=== PATIENT | male | born 1945 | race Caucasian/White ===

== ENCOUNTER 2024-06-13 20:04 | Inpatient (IN) | payer MEDICARE ==
[~2024-06-13] VITALS: Ht 172.7 cm; Wt 72.1 kg
[2024-06-13] MEDS ORDERED: DIATR MEGLU/DIATRIZOATE SODIUM 30 ML BOTTLE (GASTROGRAPHIN) ONE (20:36)
[2024-06-13] MEDS: IV NS 0.9% 1,000 ML BAG IV ONE (21:00)
[2024-06-13] MEDS: PIPERACILLIN /TAZOBACTAM 3.375 G in IV D5W 50 ML IV ONE (21:00)
[2024-06-13] MEDS: ACETAMINOPHEN 650 MG/SUPP.RECT RC ONE (21:00)
[2024-06-13] MEDS: VANCOMYCIN 1 GM in IV D5W 250 ML IV ONE (21:00)
[2024-06-13 21:02] LABS: BASOPHILS % (AUTO) 0.4 % (0.0-2.0); HEMATOCRIT 35 % (39-51); HEMOGLOBIN 11.2 g/dL (13.5-17.5); LYMPHOCYTES # (AUTO) 0.3 K/uL (0.8-4.8); LYMPHOCYTES % (AUTO) 2.4 % (20.0-44.0); MEAN CORPUSCULAR HEMOGLOBIN 23 PG (26.0-33.0); MEAN CORPUSCULAR HGB CONC 32 g/dl (31.0-36.0); MEAN CORPUSCULAR VOLUME 71 fL (80-96); MONOCYTES # (AUTO) 0.7 K/uL (0.1-1.30); MONOCYTES % (AUTO) 6.4 % (2.0-12.0); NEUTROPHILS # (AUTO) 9.8 K/uL (1.8-8.9); NEUTROPHILS % (AUTO) 90.8 % (43.0-81.0); PLATELET COUNT (AUTO) 282 K/uL (150-450); RED BLOOD CELL COUNT(AUTO) 4.89 MIL/uL (4.5-6.0); WHITE BLOOD COUNT (AUTO) 10.8 K/uL (4.3-11.0)
[2024-06-13] MEDS ORDERED: VANCOMYCIN 1 GM /D5W 250 ML PB IV ONE (21:05)
[2024-06-13] MEDS ORDERED: PIPERACI/TAZO 3.375GM/D5W 50ML PB IV ONE (21:05)
[2024-06-13] MEDS ORDERED: ACETAMINOPHEN 650 MG/SUPP.RECT RC ONE (21:05)
[2024-06-13 21:24] LABS: ALANINE AMINOTRANSFERASE 12 U/L (12-78); ALBUMIN 2.8 g/dL (3.4-5.0); ALKALINE PHOSPHATASE 78 U/L (46-116); ASPARTATE AMINOTRANSFERASE 16 U/L (15-37); BILIRUBIN,DIRECT 0.2 mg/dL (0.0-0.2); BILIRUBIN,TOTAL 0.6 mg/dL (0.2-1.0); CALCIUM, SERUM 10.3 mg/dL (8.5-10.1); CARBON DIOXIDE 28 mmol/L (21-32); CHLORIDE 89 mmol/L (98-107); CREATININE 0.8 mg/dL (0.6-1.3); GLUCOSE 171 mg/dL (74-106); INR 1.17 (0.91-1.10); LIPASE 20 U/L (16-77); NT-PRO BNP 1211 pg/mL (0-125); PARTIAL THROMBOPLASTIN TIME 26.2 SEC (24.3-34.3); POTASSIUM 3.7 mmol/L (3.5-5.1); PROTHROMBIN TIME 12.3 SECS (9.2-11.1); SODIUM SERUM 126 mmol/L (136-145); TOTAL PROTEIN, SERUM 7.7 g/dL (6.4-8.2); UREA NITROGEN, BLOOD 18 mg/dL (7-18)
[2024-06-13 21:27] LABS: LACTIC ACID 3.7 mmol/L (0.4-2.0)
[2024-06-13 23:08] LABS: APPEARANCE,URINE CLEAR (CLEAR); BILIRUBIN,URINE NEGATIVE (NEGATIVE); BLOOD, URINE TRACE-INTA Ery/uL (NEGATIVE); COLOR,URINE YELLOW (YELLOW); KETONES,URINE 1+ mg/dL (NEGATIVE); LEUKOCYTE ESTERASE ,URINE NEGATIVE (NEGATIVE); NITRITE, URINE NEGATIVE (NEGATIVE); PH,URINE 7.5 (5.0-8.0); PROTEIN,URINE 1+ mg/dl (NEGATIVE); UGLUCOSE NEGATIVE (NEGATIVE); UROBILINOGEN,URINE 0.2 EU/dL (0.2)
[2024-06-13 23:18] LABS: ADD URINE CULTURE NO; BACTERIA,URINE None seen /HPF (None Seen); CALCIUM OXALATE CRYSTALS,UR Few /HPF (None Seen); SQUAMOUS EPITHELIAL CELL,UR Rare /HPF (None Seen); WBC,URINE 0-2 /HPF (0-3)
[2024-06-13] MEDS ORDERED: MAGNESIUM HYDROXIDE 30 ML UDC PO PRN (23:30)
[2024-06-13] MEDS ORDERED: MAG HYDROX/AL HYDROX/SIMETH 30 ML UDC PO PRN (23:30)
[2024-06-13] MEDS ORDERED: ONDANSETRON HCL/PF 4 MG/2 ML VIAL IVP PRN (23:30)
[2024-06-13] MEDS ORDERED: DEXTROSE 50%-WATER 50 ML DISP.SYRIN IV PRN (23:30)
[2024-06-13] MEDS ORDERED: ACETAMINOPHEN 325 MG TABLET PO PRN (23:30)
[2024-06-13] MEDS ORDERED: ZOSYN IVPB 3.375 G in IV D5W 50ml IV ONE (23:45)
[2024-06-14] VITALS (11 sets, daily range): BP systolic 128–156; BP diastolic 74–85; TEMP 97.2–98.8; O2SAT 94–99
[2024-06-14] MEDS ORDERED: CALC-770 GT (01:18)
[2024-06-14] MEDS ORDERED: FOLI0.4T6 GT (01:18)
[2024-06-14] MEDS ORDERED: CLOP75TA15 PO (01:18)
[2024-06-14] MEDS ORDERED: GABA300C GT (01:18)
[2024-06-14] MEDS ORDERED: FLUT1BLS14 INH (01:18)
[2024-06-14] MEDS ORDERED: BIFI4CAP GT (01:18)
[2024-06-14] MEDS ORDERED: PANT40TA49 GT (01:18)
[2024-06-14] MEDS ORDERED: GLIM1TAB18 GT (01:18)
[2024-06-14] MEDS ORDERED: HYDR12.55 PO (01:18)
[2024-06-14] MEDS ORDERED: AMOX1TAB16 PO (01:18)
[2024-06-14] MEDS ORDERED: SITA100T GT (01:18)
[2024-06-14] MEDS ORDERED: ASCO500C17 PO (01:18)
[2024-06-14] MEDS ORDERED: CYAN10006 IM (01:18)
[2024-06-14] MEDS ORDERED: DIVA125C5 GT (01:18)
[2024-06-14] MEDS ORDERED: TRAM50TA2 GT (01:18)
[2024-06-14] MEDS ORDERED: LOSA50TA39 GT (01:18)
[2024-06-14] MEDS ORDERED: METF-442 GT (01:18)
[2024-06-14] MEDS ORDERED: ACET-3117 PO (01:18)
[2024-06-14] MEDS ORDERED: ATOR40TA GT (01:18)
[2024-06-14] MEDS ORDERED: METO25TA6 GT (01:18)
[2024-06-14] MEDS: ENOXAPARIN SODIUM 40 MG/0.4 ML DISP.SYRIN SQ SCH (02:23)
[2024-06-14] MEDS ORDERED: PIPERACI/TAZO 3.375GM/D5W 50ML PB IV ONE ×2 (02:43→02:56)
[2024-06-14] MEDS: ZOSYN IVPB 3.375 G in IV D5W 50ml IV ONE (03:10)
[2024-06-14] MEDS: BLOOD SUGAR DIAGNOSTIC 1 EACH STRIP IN SCH ×2 (06:49→18:43)
[2024-06-14 07:47] LABS: BASOPHILS % (AUTO) 0.2 % (0.0-2.0); HEMATOCRIT 37 % (39-51); HEMOGLOBIN 11.5 g/dL (13.5-17.5); LYMPHOCYTES # (AUTO) 0.8 K/uL (0.8-4.8); LYMPHOCYTES % (AUTO) 5.5 % (20.0-44.0); MEAN CORPUSCULAR HEMOGLOBIN 22 PG (26.0-33.0); MEAN CORPUSCULAR HGB CONC 31 g/dl (31.0-36.0); MEAN CORPUSCULAR VOLUME 71 fL (80-96); MONOCYTES # (AUTO) 1.2 K/uL (0.1-1.30); MONOCYTES % (AUTO) 8.8 % (2.0-12.0); NEUTROPHILS # (AUTO) 11.9 K/uL (1.8-8.9); NEUTROPHILS % (AUTO) 85.5 % (43.0-81.0); PLATELET COUNT (AUTO) 285 K/uL (150-450); RED BLOOD CELL COUNT(AUTO) 5.15 MIL/uL (4.5-6.0); RED CELL DISTRIBUTION WIDTH 17.1 % (11.5-15.0); WHITE BLOOD COUNT (AUTO) 13.9 K/uL (4.3-11.0)
[2024-06-14] MEDS: INSULIN REGULAR, HUMAN 100 UNIT/ML 3 ML VIAL SQ PRN ×2 (08:24→18:43)
[2024-06-14 08:26] LABS: CALCIUM, SERUM 9.5 mg/dL (8.5-10.1); CREATININE 0.6 mg/dL (0.6-1.3); MAGNESIUM 1.6 mg/dL (1.8-2.4); PHOSPHORUS 3.6 mg/dL (2.5-4.9); POTASSIUM 3.5 mmol/L (3.5-5.1)
[2024-06-14] MEDS: PIPERACILLIN /TAZOBACTAM 3.375 G in IV D5W 50 ML IV SCH (09:58)
[2024-06-14] MEDS: PANTOPRAZOLE 40 MG VIAL IV SCH (09:59)
[2024-06-14] MEDS ORDERED: HYDR25TA4 GT (10:23)
[2024-06-14] MEDS ORDERED: CYAN-51 GT (10:23)
[2024-06-14] MEDS ORDERED: ASCO500T10 GT (10:23)
[2024-06-14] MEDS: VANCOMYCIN 750 MG in IV D5W 250 ML IV SCH (10:30)
[2024-06-14] MEDS: Magnesium 1GM/D5W 100ML PREMIX 100 ML IV SCH (11:32)
[2024-06-15] VITALS (11 sets, daily range): BP systolic 121–150; BP diastolic 59–93; TEMP 97.3–99.1; O2SAT 93–97
[2024-06-15 08:04] LABS: BASOPHILS % (AUTO) 0.2 % (0.0-2.0); EOSINOPHILS % (AUTO) 0.1 % (0.0-6.0); HEMATOCRIT 33 % (39-51); HEMOGLOBIN 10.4 g/dL (13.5-17.5); LYMPHOCYTES % (AUTO) 6.5 % (20.0-44.0); MEAN CORPUSCULAR HEMOGLOBIN 22 PG (26.0-33.0); MEAN CORPUSCULAR HGB CONC 32 g/dl (31.0-36.0); MEAN CORPUSCULAR VOLUME 70 fL (80-96); MONOCYTES % (AUTO) 8.1 % (2.0-12.0); NEUTROPHILS % (AUTO) 85.1 % (43.0-81.0); PLATELET COUNT (AUTO) 250 K/uL (150-450); RED BLOOD CELL COUNT(AUTO) 4.65 MIL/uL (4.5-6.0); RED CELL DISTRIBUTION WIDTH 17.1 % (11.5-15.0); WHITE BLOOD COUNT (AUTO) 10.1 K/uL (4.3-11.0)
[2024-06-15 08:05] LABS: LYMPHOCYTES # (AUTO) 0.7 K/uL (0.8-4.8); MONOCYTES # (AUTO) 0.8 K/uL (0.1-1.30); NEUTROPHILS # (AUTO) 8.6 K/uL (1.8-8.9)
[2024-06-15 08:19] LABS: CREATININE 0.5 mg/dL (0.6-1.3); MAGNESIUM 1.9 mg/dL (1.8-2.4); PHOSPHORUS 3.4 mg/dL (2.5-4.9); POTASSIUM 3.1 mmol/L (3.5-5.1)
[2024-06-15] MEDS ORDERED: POTASSIUM CL. PREMIX PERIPHER. 50 ML IV SCH (17:00)
[2024-06-15] MEDS: POTASSIUM CHLORIDE 20 MEQ POWDER PACKET GT ONE (17:57)
[2024-06-15] MEDS ORDERED: VANCOMYCIN 1 GM in IV D5W 250ml IV SCH (21:00)
[2024-06-15] MEDS: LEVOFLOXACIN (250MG) 250 MG TABLET PO SCH (21:14)
[2024-06-16] VITALS: BP 159/90; TEMP 98.8; O2SAT 95
[2024-06-16 03:20] VITALS: O2SAT 95
[2024-06-16 04:00] VITALS: BP 154/95; TEMP 98.8; O2SAT 95
[2024-06-16 07:49] VITALS: O2SAT 95
[2024-06-16 07:57] LABS: BASOPHILS % (AUTO) 0.4 % (0.0-2.0); EOSINOPHILS % (AUTO) 0.2 % (0.0-6.0); HEMATOCRIT 34 % (39-51); HEMOGLOBIN 10.9 g/dL (13.5-17.5); LYMPHOCYTES # (AUTO) 0.6 K/uL (0.8-4.8); LYMPHOCYTES % (AUTO) 9.3 % (20.0-44.0); MEAN CORPUSCULAR HEMOGLOBIN 22 PG (26.0-33.0); MEAN CORPUSCULAR HGB CONC 32 g/dl (31.0-36.0); MEAN CORPUSCULAR VOLUME 70 fL (80-96); MONOCYTES # (AUTO) 0.7 K/uL (0.1-1.30); MONOCYTES % (AUTO) 11.3 % (2.0-12.0); NEUTROPHILS # (AUTO) 4.7 K/uL (1.8-8.9); NEUTROPHILS % (AUTO) 78.8 % (43.0-81.0); PLATELET COUNT (AUTO) 260 K/uL (150-450); RED BLOOD CELL COUNT(AUTO) 4.85 MIL/uL (4.5-6.0); RED CELL DISTRIBUTION WIDTH 17.3 % (11.5-15.0)
[2024-06-16 08:00] VITALS: BP 147/89; TEMP 98.2; O2SAT 92
[2024-06-16 08:00] LABS: CALCIUM, SERUM 9.2 mg/dL (8.5-10.1); CREATININE 0.5 mg/dL (0.6-1.3); MAGNESIUM 1.8 mg/dL (1.8-2.4); PHOSPHORUS 3.8 mg/dL (2.5-4.9); POTASSIUM 3.4 mmol/L (3.5-5.1)
[2024-06-16 08:10] LABS: THYROID STIMULATING HORMONE 1.03 uIU/mL (0.358-3.74); URIC ACID 1.5 mg/dL (2.6-7.2)
[2024-06-16] MEDS: PANTOPRAZOLE 40 MG/PACK PACK GT SCH (09:36)
[2024-06-16 12:00] VITALS: BP 155/92; TEMP 98.2; O2SAT 97
[2024-06-16] MEDS: POTASSIUM CHLORIDE 20 MEQ POWDER PACKET GT SCH (12:01)
[2024-06-16] MEDS: POTASSIUM CHLORIDE 20 MEQ POWDER PACKET GT ONE (12:02)
[2024-06-16] MEDS ORDERED: LEVO500T90 PO (14:01)
== END 2024-06-16 17:53 | disposition home or self-care (01) | DRG 871 ==
LOC: ER 20:10 → EDBD 20:10 → TELE1 06-14 00:29 → MEDSG1 06-16 10:15
PROC: 0D20XUZ Change Feeding Device in Upper Intestinal Tract, External Approach (ICD-10-PCS; principal; 2024-06-13)
DX: A41.9 Sepsis, unspecified organism (principal); J15.69 Pneumonia due to other Gram-negative bacteria; E44.0 Moderate protein-calorie malnutrition; E87.1 Hypo-osmolality and hyponatremia; E87.20 Acidosis, unspecified; K94.23 Gastrostomy malfunction; Z20.822 Contact with and (suspected) exposure to COVID-19; I10 Essential (primary) hypertension; Z86.74 Personal history of sudden cardiac arrest; Z87.891 Personal history of nicotine dependence; Z85.810 Personal history of malignant neoplasm of tongue; Z98.890 Other specified postprocedural states; E88.09 Other disorders of plasma-protein metabolism, not elsewhere classified; E87.6 Hypokalemia; J20.9 Acute bronchitis, unspecified; E78.5 Hyperlipidemia, unspecified; E11.9 Type 2 diabetes mellitus without complications; D50.9 Iron deficiency anemia, unspecified; R13.10 Dysphagia, unspecified; S09.90XA Unspecified injury of head, initial encounter; W06.XXXA Fall from bed, initial encounter; Y92.009 Unspecified place in unspecified non-institutional (private) residence as the place of occurrence of the external cause; R79.82 Elevated C-reactive protein (CRP); Z92.3 Personal history of irradiation; Y83.3 Surgical operation with formation of external stoma as the cause of abnormal reaction of the patient, or of later complication, without mention of misadventure at the time of the procedure; Y92.9 Unspecified place or not applicable
CPT/HCPCS: 31720; 36415; 70450-TC; 71045-TC; 72170-TC; 74018; 80048-TC; 80076-TC; 80202-TC; 81001; 82962-TC; 83605-TC; 83690-TC; 83735-TC; 83880; 83935-TC; 84100-TC; 84443-TC; 84484-TC; 84550-TC; 85025-TC; 85730-TC; 87040-TC; 87081-TC; 87086-TC; 93307-TC; 93970-TC; 94640-TC; 94760-TC; 94762-TC; 94799-TC; 97112-TC; 97116-TC; 97530-TC; A4223; A4623; G0378; J1650; J1815; J2470; J2543; J3370; J3371; J3475; J7030; J7050; J7060; Q9963